=== PATIENT | male | born 1980 | race Caucasian/White ===

== ENCOUNTER 2016-08-31 09:46 | Emergency (ER) | payer OTHER ==
[2016-08-31 09:52] VITALS: BP 137/76
--- NOTE | 2016-08-31 10:14 | PROVIDER DOCUMENTATION ---
HPI-Musculoskeletal Pain/Inj - GENERAL Source: patient - HX OF PRESENT ILLNESS-MUSKULOSKELTAL Quality of Pain: reports: aching Severity in ED: moderate Onset/Duration: just prior to arrival Timing: still present Any recent injury?: Yes Locality of Occurance: Home Similar Symptoms Previously?: No Recently seen or treated by another doctor?: No <Kaya Jessica - Last Filed: 08/31/16 10:45> <Gabbie Delgado - Last Filed: 08/31/16 10:54> - GENERAL Chief Complaint: Amputation Stated Complaint: LACERATION{S} Time Seen by Provider: 08/31/16 10:08 - HX OF PRESENT ILLNESS-MUSKULOSKELTAL Nature of Presenting Problem: [employer] pt was helping friend cut up a pig with a knife when he amputated the tip of the left distal 2nd digit. Denies n,v,f. Full range of motion. (Kaya Jessica ) Review of Systems - Adult - REVIEW OF SYSTEMS - ADULT Constitutional: denies: chills, fever, fatique Eyes: reports: no symptoms reported Ears, Nose, Mouth & Throat: reports: no symptoms reported Cardiovascular: denies: chest pain, irregular heart rate, orthopnea, syncope Respiratory: reports: no symptoms reported Gastrointestinal: reports: no symptoms reported Genitourinary: reports: no symptoms reported Musculoskeletal: reports: see HPI. denies: frequent leg cramps, joint pain, joint swelling, muscle aches Integumentary: reports: see HPI. denies: mole changes, nail changes, skin sores /ulcer, skin thickening Neurological: reports: no symptoms reported Psychiatric: reports: no symptoms reported Endocrine: reports: no symptoms reported Hematologic/Lymphatic: reports: no symptoms reported Allergic/Immunologic: reports: no symptoms reported All Other Systems: Reviewed and Negative <Kaya Jessica - Last Filed: 08/31/16 10:45> Past History - Adult - PAST MEDICAL HISTORY-ADULT Review of Records: reports: Nursing Assessment Review Major Childhood Illnesses: reports: denies history Cardiovascular: reports: denies history - PRIOR SURGERIES/PROCEDURES Surgical/Procedure History: reports: tonsillectomy, back/neck - IMMUNIZATION STATUS Childhood Immunizations: See Nurse Assessment Flu Vaccine: See Nurse Assessment - FAMILY HISTORY Family History: reviewed, not pertinent - SOCIAL HISTORY Smoking: denies Substance Use: none/never <Kaya Jessica - Last Filed: 08/31/16 10:45> Physical Exam-Injury Related - Physical Exam-Injury Related Initial Vital Signs Reviewed: Yes General Appearance: appears well, alert Eyes: PERRL/EOMI, pink conjunctivae Head, Ears, Nose, Mouth & Throat: normocephalic/atraumatic, moist mucous membranes, normal ENT inspection Neck: full range of motion, supple Respiratory: lungs clear, normal breath sounds Cardiovascular: normal peripheral pulses, regular rate, rhythm Peripheral Pulses: radial (L): 2+ Extremity: other ( amputation of left distal phanlanx) Integumentary: normal color, warm/dry - Glascow Coma Score Best Eye Response (Pratik): (4) open spontaneously Best Verbal Response (Pratik): (5) oriented Best Motor Response (Pratik): (6) obeys commands <Gabbie Delgado - Last Filed: 08/31/16 10:54> Progress - XRAY 1 XRAY: Left XRAY Study: Hand Impression: Abnormal (amputation of the distal finger including bone ([place])) <Kaya Jessica - Last Filed: 08/31/16 10:45> - CONSULTS/PCP/HOSPITALIST Notification #1 *Consult/PCP/Hospitalist*: Dr. Monsalve Time Discussed: 10:45 Reason/Comments: amputation of left index fingertip Consult Disposition: F/U in office <Gabbie Delgado - Last Filed: 08/31/16 10:54> - PLAN OF CARE/RESULTS Progress/Plan/Lab Results: Orders Category Date Time Status FINGER(S)-LEFT [RAD] Stat Exams 08/31/16 09:54 Taken Diphtheria/Tetanus Adult Med 08/31/16 10:17 Discontinued 0.5 ml IM .ONCE ONE Hydrocodone/APAP 7.5 mg/325 mg [Icard-7.5] Med 08/31/16 10:17 Discontinued 1 each PO NOW ONE Vital Signs - 24 hr 08/31/16 09:48 Temperature 97 F L Pulse Rate 62 Respiratory 18 Rate Blood Pressure 137/76 O2 Sat by Pulse 100 Oximetry (Kaya Jessica) Discussed care, diagnosis and need for follow-up, patient verbalized understanding (Gabbie Delgado) Departure <Kaya Jessica - Last Filed: 08/31/16 10:45> - Departure Time of Disposition Order: 10:49 Certified Medical Emergency: Emergent <Sandy,Gabbietatianna Gee - Last Filed: 08/31/16 10:54> - Departure DIAGNOSIS: Traumatic amputation of fingertip Qualifiers: Encounter type: initial encounter Qualified Code(s): S68.129A - Partial traumatic metacarpophalangeal amputation of unspecified finger, initial encounter Disposition: HOME 01 Condition: Stable Additional Instructions: ED Follow Up Instructions: You have been treated by a care provider in the Emergency Department. These instructions are being provided to you so you can have an understanding of how to care for yourself upon discharge. Upon discharge from the Emergency Department, you are responsible for making arrangements for follow-up care by a physician of your choice. Take all prescribed medications as directed. Return to the Emergency Department immediately for any new or worsening symptoms. You may call the Physician Referral phone number at [phone] to obtain a list of Physicians who are taking new patients. Prescriptions: Cephalexin [Keflex] 500 mg PO BID #20 capsule Hydrocodone/Acetaminophen [Lortab 7.5-325 mg Tablet] 1 each PO TID #10 tablet Referrals: None,PCP [Primary Care Provider] - Mihir Monsalve MD [STAFF PHYSICIAN] - Attestation - Scribe Verification/Attestation Scribe:: Kaya Jessica Acting as Scribe for:: Gabbie Delgado Scribe documention review:: This chart was documented by a scribe and accurately reflects the service the provider performed and the decisions made by the provider. - Physician/ LANA Attestation Patient care was provided by Advanced Practice Provider:: Yes Advanced Practice Provider:: Gabbie Delgado Advanced Practice Provider documentation review:: The Mid-level provider documentation, treatment plan and medical decision making was reviewed by the physician who agrees with all treatment and medical decision making by the MLP. The physician spent face to face time with patient:: Yes ( Oliver at bedside evaluated pt as well) Advanced Practice Provider documentation review:: The physician spent face to face time with this patient and agrees with all MLP documentation, treatment, and medical decision making by the MLP. See provider notes for further information. <Kaya Jessica - Last Filed: 08/31/16 10:45> - Physician/ LANA Attestation Patient care was provided by Advanced Practice Provider:: Yes Advanced Practice Provider:: Gabbie Delgado Advanced Practice Provider documentation review:: The Mid-level provider documentation, treatment plan and medical decision making was reviewed by the physician who agrees with all treatment and medical decision making by the MLP. <Gabbie Delgado - Last Filed: 08/31/16 10:54> Physician Attestation
[2016-08-31] MEDS ORDERED: DIPHTHERIA/TETANUS ADULT IM ONE (10:17)
[2016-08-31] MEDS ORDERED: NORCO-7.5 PO ONE (10:17)
[2016-08-31] MEDS ORDERED: NEOSPORIN OINTMENT PACKET ONE (10:45)
--- NOTE | 2016-08-31 11:12 | Diag Imaging Result Document ---
PROCEDURE NAME: FINGER(S)-LEFT - 08/31/2016 LEFT THUMB, THREE VIEWS: FINDINGS: The distal thumb has been amputated. A portion of the distal phalanx has been removed as has the distal soft tissues. No foreign body. IMPRESSION: Amputation of the distal thumb.
== END 2016-08-31 11:37 | disposition home or self-care (01) ==
LOC: P.ED 09:46
DX: S68.121A Partial traumatic metacarpophalangeal amputation of left index finger, initial encounter (principal); M79.645 Pain in left finger(s); Z79.899 Other long term (current) drug therapy; Z23 Encounter for immunization; W26.0XXA Contact with knife, initial encounter
CPT/HCPCS: 73140; 90471; 90714